=== PATIENT | female | born 1945 | race Caucasian/White ===

== ENCOUNTER 2019-05-18 22:49 | Emergency (ER) | payer MEDICARE, OTHER ==
[~2019-05-18] VITALS: Ht 154.9 cm; Wt 71.7 kg
[2019-05-18 23:05] VITALS: BP 135/80
--- NOTE | 2019-05-18 23:05 | NUR ---
PT BIBFAMILY C/C WEAKNESS AND DIZZNESS. PT FAMILY STATES "FELT WEAK AFTER EATING FISH AND RICE". NAD NOTED. RESP EVEN AND UNLABORED. VSS. PT ON MONITOR IN BED 3 WITH FAMILY AT BEDSIDE. WILL CONTINUE TO MONITOR.
--- NOTE | 2019-05-18 23:14 | NUR ---
TECH AT BEDSIDE FOR EKG
--- NOTE | 2019-05-18 23:18 | NUR ---
PHLEB AT BEDSIDE FOR LAB DRAW
[2019-05-18 23:28] LABS: BASOPHILS # (AUTO) 0.1 /CMM (0.0-0.2); BASOPHILS % (AUTO) 1.2 % (0.0-2.0); EOSINOPHILS % (AUTO) 8.9 % (0.0-6.0); HEMATOCRIT 38 % (33-45); HEMOGLOBIN 12.6 g/dL (11.5-14.8); LYMPHOCYTES # (AUTO) 2.4 /CMM (0.8-4.8); LYMPHOCYTES % (AUTO) 33.6 % (20.0-44.0); MEAN CORPUSCULAR HGB CONC 33 g/dl (31.0-36.0); MEAN CORPUSCULAR VOLUME 87 fL (82-100); MONOCYTES # (AUTO) 0.6 /CMM (0.1-1.30); MONOCYTES % (AUTO) 8.9 % (2.0-12.0); NEUTROPHILS # (AUTO) 3.5 /CMM (1.8-8.9); NEUTROPHILS % (AUTO) 47.4 % (43.0-81.0); PLATELET COUNT (AUTO) 233 /CMM (150-450); RED BLOOD CELL COUNT(AUTO) 4.36 MIL/uL (4.0-5.2); WHITE BLOOD COUNT (AUTO) 7.3 K/uL (4.3-11.0)
[2019-05-18 23:38] LABS: CALCIUM, SERUM 8.7 mg/dL (8.5-10.1); CARBON DIOXIDE 32 mmol/L (21-32); CHLORIDE 103 mmol/L (98-107); CREATININE 0.8 mg/dL (0.6-1.3); GLUCOSE 103 mg/dL (74-106); POTASSIUM 3.6 mmol/L (3.5-5.1); SODIUM SERUM 140 mmol/L (136-145); UREA NITROGEN, BLOOD 12 mg/dL (7-18)
--- NOTE | 2019-05-18 23:44 | NUR ---
PT TAKEN TO RADIOLOGY [facility]IA [facility]
--- NOTE | 2019-05-18 23:52 | NUR ---
[facility] PT TOLERATED WELL.
--- NOTE | 2019-05-19 00:17 | NUR ---
Patient discharged to home in stable condition. Written and verbal after care instructions given. Patient verbalizes understanding of instruction.
== END 2019-05-19 00:23 | disposition home or self-care (01) ==
LOC: EDBD 23:00 → ER 23:00
DX: R42 Dizziness and giddiness (principal)
CPT/HCPCS: 36415; 70450-TC; 80048-TC; 84484-TC; 85025-TC